=== PATIENT | female | born 1990 | race Caucasian/White ===

== ENCOUNTER → 2017-05-27 | Outpatient (CLI) | payer OTHER ==
[~2017-05-27] MED LIST: ACET50TA PO; E-Z-GAS II EFFERVESCENT PACKET (SODIUM BICARB./CITRIC ACID/SIMETHICONE) As Ordered ONE; E-Z-HD 98% w/w 340GM SUSP BTL As Ordered ONE; E-Z-PAQUE 96% w/w SUSP 176GM BTL As Ordered ONE; IBUP60TA PO; PRENTAB26 PO; VALT500T PO
--- NOTE | 2017-05-27 09:17 | REP ---
Abdominal right upper quadrant ultrasound: There is a negative Neil's sign. There are multiple gallbladder calculi. There is no gallbladder wall thickening or pericholecystic fluid. There is no intrahepatic or extrahepatic biliary duct dilatation, the common duct measures 5.4 mm in diameter. The liver is enlarged measuring 20.3 cm craniocaudad. The hepatic parenchyma is homogeneous. The visualized portion of the pancreatic head is unremarkable. The body and tail are obscured by bowel gas. There is no right renal calculus, hydronephrosis, mass or cyst. The right kidney is normal size measuring 10.3 cm craniocaudad length. Impression: Cholelithiasis without evidence of acute cholecystitis or biliary duct dilatation. Signed by Dain Vidal MD 05/27/2017 09:07 A
--- NOTE | 2017-05-27 17:28 | REP ---
UPPER GI AIR CONTRAST AND SMALL BOWEL FOLLOW-THROUGH: The procedure was performed under the direct supervision of Dr. Burns. The images were reviewed with Dr. Burns. The customer success associate film shows no organomegaly or pathological masses. The intestinal gas pattern is nonspecific. Liquid barium and gas producing granules were given in the erect position as well as liquid barium in the prone oblique position in order to perform a double contrast upper GI examination. Additionally liquid barium was given at the end of the examination in order to perform a small bowel follow-through. The oral and pharyngeal stages of deglutition are unremarkable. Esophageal transport is prompt and efficient and there is no esophagitis, stricture, mucosal ring, or hiatal hernia. There is gastroesophageal reflux demonstrated to below the level of the ant. The stomach francis are normally outlined. The rugal fold is smooth and regular. There is no gastritis, neoplasm or ulcer disease. The duodenal francis are normally outlined. The mucosal folds are smooth and regular. There is no duodenitis, pancreatitis, peptic ulcer disease, or neoplasm. The visualized portion of the proximal small bowel appears normal in course and caliber. The barium column was followed through the small bowel to the level of the terminal ileum. Small bowel transit time was approximately 1 hour. During fluoroscopy gentle palpation shows all loops are freely movable and pliable. There are no fixed or angulated loops. The small bowel mucosal pattern is normal in course and caliber. There is no transition to suggest a partial small bowel obstruction. Spot filming of terminal ileum shows it to be unremarkable. IMPRESSION: There is gastroesophageal reflux demonstrated to below the level of the ant, otherwise unremarkable double contrast upper GI and small bowel follow-through examination. 3 minutes and 15 seconds of fluoroscopy time was utilized for this procedure. Reviewed by NOEMÍ Campuzano 05/30/2017 04:24 PEdited and Signed by Boni Burns MD 05/30/2017 05:33 P
== END ==
LOC: M RAD 08:00
PROVIDERS: ATTEND Nurse Practitioner Adult Health
DX: K58.2 Mixed irritable bowel syndrome (principal); R10.13 Epigastric pain

== ENCOUNTER 2017-12-19 16:12 | Observation (INO) | payer OTHER ==
[2017-12-19] MEDS: PANTOPRAZOLE 40MG INJ (PROTONIX) (C9113) IV ×2 (19:47)
[2017-12-19 19:54] LABS: KETONE, URINE AUTO RFX NEGATIVE (NEGATIVE); MUCUS, URINE RFX SMALL (NEGATIVE); NITRITE, URINE AUTO RFX NEGATIVE (NEGATIVE); RBC, URINE AUTO RFX TNTC /HPF (0-3); SQUAM EPITHELIAL CELL UR AURFX 1 /HPF (0-6)
[2017-12-19 19:55] LABS: LEUKOCYTE ESTERASE UR AUTO RFX 1+ (NEGATIVE); WBC, URINE AUTO RFX 56 /HPF (0-3)
[2017-12-19 19:56] LABS: BASO % 0.6 % (0.0-1.0); EOS # 0.1 10^3/uL (0.0-0.50); EOS % 1.8 % (0.0-3.0); HEMATOCRIT 39.1 % (36.0-47.0); HEMOGLOBIN 13.5 g/dl (12.0-16.0); IMMATURE GRANULOCYTE % 0.1 % (0-3.0); LYMPH # 1.8 10^3/uL (1.5-6.5); MEAN CORPUSCULAR HEMOGLOBIN 29.7 pg (27.0-33.0); MEAN CORPUSCULAR HGB CONC 34.5 g/dl (32.0-36.5); MEAN CORPUSCULAR VOLUME 85.9 fl (80.0-96.0); MONO # 0.4 10^3/uL (0.0-0.8); MONO % 5.4 % (0.0-5.0); NEUTROPHILS # 4.9 10^3/uL (1.8-7.7); NEUTROPHILS % 67.1 % (36.0-66.0); PLATELET COUNT, AUTOMATED 321 10^3/uL (150-450); RED BLOOD COUNT 4.55 10^6/uL (4.00-5.40); WHITE BLOOD COUNT 7.2 10^3/uL (4.0-10.0)
[2017-12-19 20:22] LABS: ALBUMIN 3.4 GM/DL (3.2-5.2); ALBUMIN/GLOBULIN RATIO 0.74 (1.00-1.93); ALKALINE PHOSPHATASE 258 U/L (45-117); ALT/SGPT 221 U/L (12-78); ANION GAP 9 MEQ/L (8-16); AST/SGOT 344 U/L (7-37); BILIRUBIN,DIRECT 0.7 MG/DL (0.0-0.2); BILIRUBIN,TOTAL 1.1 MG/DL (0.2-1.0); BLOOD UREA NITROGEN 10 MG/DL (7-18); CALCIUM LEVEL 9.4 MG/DL (8.5-10.1); CARBON DIOXIDE LEVEL 27 MEQ/L (21-32); CHLORIDE LEVEL 102 MEQ/L (98-107); CREATININE FOR GFR 0.68 MG/DL (0.55-1.30); GLOMERULAR FILTRATION RATE > 60.0 (>60); GLUCOSE, FASTING 125 MG/DL (70-100); LIPASE 154 U/L (73-393); POTASSIUM SERUM 4.1 MEQ/L (3.5-5.1); SODIUM LEVEL 138 MEQ/L (136-145)
[2017-12-19 21:23] LABS: CONTROL LINE UCG INT CTR LINE PRESENT; URINE PREG TEST NEGATIVE (NEGATIVE)
[2017-12-19] MEDS ORDERED: ISOVUE-370 76% 100ML VIAL (Q9967) As Ordered ×2 (21:31)
[2017-12-19 23:09] LABS: CONTROL LINE MONO INT CTR LINE PRESENT; MONO SCRN NEGATIVE (NEGATIVE)
[2017-12-20] MEDS: diphenhydrAMINE INJ 50MG/ML VIAL (J1200) IV ×2 (00:54)
[2017-12-20] MEDS ORDERED: ACETAMINOPHEN TAB 650MG DOSE (2X325MG) PO ×2 (02:00)
[2017-12-20] MEDS ORDERED: KETOROLAC 30 MG/ML VIAL (J1885) IV ×2 (02:00)
[2017-12-20] MEDS ORDERED: NORCO, ANEXSIA 5/325MG TABLET (HYDROcodone/ACETAMINOPHEN) PO ×2 (02:00)
[2017-12-20] MEDS ORDERED: ONDANSETRON 4MG/2ML VIAL (J2405) IV ×2 (02:00)
[2017-12-20] MEDS ORDERED: MORPHINE 4 MG/ML 1ML VIAL (J2270) IV ×2 (02:00)
[2017-12-20] MEDS ORDERED: METOCLOPRAMIDE INJ 10MG/2ML VIAL (J2765) IV ×2 (02:00)
[2017-12-20] MEDS: LR 1,000 ML IV ×2 (02:24)
[2017-12-20 08:00] LABS: ALBUMIN 3.1 GM/DL (3.2-5.2); ALBUMIN/GLOBULIN RATIO 0.84 (1.00-1.93); ALKALINE PHOSPHATASE 246 U/L (45-117); ALT/SGPT 217 U/L (12-78); AST/SGOT 183 U/L (7-37); BILIRUBIN,DIRECT 0.2 MG/DL (0.0-0.2); BILIRUBIN,TOTAL 0.4 MG/DL (0.2-1.0); TOTAL PROTEIN 6.8 GM/DL (6.4-8.2)
[2017-12-21 10:19] LABS: HEPATITIS B SURFACE ANTIGEN NEGATIVE (NEGATIVE)
[2017-12-21 10:47] LABS: HEPATITIS B CORE ANTIBODY IGM NEGATIVE (NEGATIVE)
[2017-12-21 10:49] LABS: HEPATITIS A ANTIBODY IGM NEGATIVE (NEGATIVE)
== END 2017-12-20 19:15 | disposition home or self-care (01) ==
LOC: M ED INP 12-20 01:51 → M ED 16:12 → M ED INP 16:13 → M PED 12-20 02:51
DX: K80.20 Calculus of gallbladder without cholecystitis without obstruction (principal); R79.89 Other specified abnormal findings of blood chemistry; N83.202 Unspecified ovarian cyst, left side; E66.9 Obesity, unspecified; Z79.899 Other long term (current) drug therapy; Z79.3 Long term (current) use of hormonal contraceptives; Z88.2 Allergy status to sulfonamides
CPT/HCPCS: C9113

== ENCOUNTER → 2018-01-04 | Outpatient (CLI) | payer OTHER ==
[2018-01-04 13:27] LABS: ALBUMIN 3.1 GM/DL (3.2-5.2); ALBUMIN/GLOBULIN RATIO 0.78 (1.00-1.93); ALKALINE PHOSPHATASE 120 U/L (45-117); ALT/SGPT 18 U/L (12-78); AST/SGOT 14 U/L (7-37); BILIRUBIN,DIRECT < 0.1 MG/DL (0.0-0.2); BILIRUBIN,TOTAL 0.3 MG/DL (0.2-1.0); TOTAL PROTEIN 7.1 GM/DL (6.4-8.2)
== END ==
LOC: M WUC 09:30
DX: K80.20 Calculus of gallbladder without cholecystitis without obstruction (principal)
CPT/HCPCS: 80076

== ENCOUNTER 2018-01-10 08:19 | Day surgery (SDC) | payer OTHER ==
[2018-01-10] MEDS ORDERED: LIDOCAINE 1% SDV 5 ML VIAL SC (08:30)
[2018-01-10 09:26] LABS: URINE PREG TEST NEGATIVE (NEGATIVE)
[2018-01-10 09:27] LABS: CONTROL LINE UCG INT CTR LINE PRESENT
[2018-01-10] MEDS: LR 1,000 ML IV (09:29)
[2018-01-10] MEDS ORDERED: fentaNYL 100 MCG/2 ML INJECTION (J3010) As Ordered ×2 (09:38→16:00)
[2018-01-10] MEDS ORDERED: MIDAZOLAM INJ 2 MG/2 ML VIAL (J2250) As Ordered (09:39)
[2018-01-10] MEDS ORDERED: ROCURONIUM BROMIDE 50 MG/5 ML VIAL As Ordered ×3 (09:41→16:00)
[2018-01-10] MEDS ORDERED: LIDOCAINE 2% INJ 100 MG/5 ML SDV (FOR ANES.) As Ordered (09:41)
[2018-01-10] MEDS ORDERED: PROPOFOL 200 MG/20 ML VIAL As Ordered (09:41)
[2018-01-10] MEDS ORDERED: ESMOLOL INJ 100MG/10ML VIAL As Ordered (16:00)
[2018-01-10] MEDS: BUPIVACAINE HCL 0.25% 30 ML VIAL As Ordered (16:00)
[2018-01-10] MEDS ORDERED: NEOSTIGMINE 10 MG/10 ML VIAL (J2710) As Ordered (16:32)
[2018-01-10] MEDS ORDERED: GLYCOPYRROLATE INJ 0.2 MG/ML 2 ML VIAL As Ordered (16:32)
[2018-01-10] MEDS: CONRAY-60 60% 50ML VIAL (Q9961) As Ordered (16:35)
[2018-01-10] MEDS ORDERED: KETOROLAC 60 MG/2 ML VIAL (J1885) As Ordered (16:37)
[2018-01-10] MEDS ORDERED: ONDANSETRON 4MG/2ML VIAL (J2405) As Ordered (16:37)
[2018-01-10] MEDS ORDERED: MORPHINE 10 MG/ML 1ML VIAL (J2270) IV (17:15)
[2018-01-10] MEDS ORDERED: LR 1,000 ML IV (17:15)
[2018-01-10] MEDS ORDERED: fentaNYL 100 MCG/2 ML INJECTION (J3010) IV (17:15)
[2018-01-10] MEDS ORDERED: ONDANSETRON 4MG/2ML VIAL (J2405) IV (17:15)
[2018-01-10] MEDS: PERCOCET 5MG/325MG TAB PO ×2 (17:22→18:50)
[2018-01-10] MEDS ORDERED: IBUPROFEN 600 MG TAB PO (17:30)
[2018-01-10] MEDS ORDERED: NORCO, ANEXSIA 5/325MG TABLET (HYDROcodone/ACETAMINOPHEN) PO (17:30)
[2018-01-10] MEDS ORDERED: ACETAMINOPHEN TAB 650MG DOSE (2X325MG) PO (17:30)
== END 2018-01-10 19:30 | disposition home or self-care (01) ==
LOC: M SDC 08:19
DX: K80.12 Calculus of gallbladder with acute and chronic cholecystitis without obstruction (principal); K58.9 Irritable bowel syndrome, unspecified; Z88.2 Allergy status to sulfonamides; Z79.3 Long term (current) use of hormonal contraceptives
CPT/HCPCS: 47563

== ENCOUNTER → 2018-03-23 | Outpatient (REF) | payer OTHER | LOC: M SFHCWAGY 16:14 | DX: Z12.4 Encounter for screening for malignant neoplasm of cervix (principal) ==

== ENCOUNTER → 2018-04-16 | Outpatient (REF) | payer OTHER | LOC: M SFHCLERA 15:42 | DX: J02.9 Acute pharyngitis, unspecified (principal) ==

== ENCOUNTER → 2018-08-04 | Outpatient (REF) | payer OTHER ==
[2018-08-04 20:08] LABS: CHLAMYDIA DNA AMPLIFICATION NEGATIVE (NEGATIVE); GC DNA AMPLIFICATION NEGATIVE (NEGATIVE)
== END ==
LOC: M LAB REF 17:40
DX: Z34.81 Encounter for supervision of other normal pregnancy, first trimester (principal)

== ENCOUNTER → 2018-09-19 | Outpatient (CLI) | payer OTHER ==
[2018-09-19 19:35] LABS: HEMATOCRIT 33.1 % (36.0-47.0); HEMOGLOBIN 11.1 g/dl (12.0-15.5); MEAN CORPUSCULAR HEMOGLOBIN 30.2 pg (27.0-33.0); MEAN CORPUSCULAR HGB CONC 33.5 g/dl (32.0-36.5); MEAN CORPUSCULAR VOLUME 90.2 fl (80.0-96.0); PLATELET COUNT, AUTOMATED 249 10^3/uL (150-450); RED BLOOD COUNT 3.67 10^6/uL (4.00-5.40); RED CELL DISTRIBUTION WIDTH 14.7 % (11.5-14.5); WHITE BLOOD COUNT 8.9 10^3/uL (4.0-10.0)
[2018-09-19 19:50] LABS: GLUCOSE CHALLENGE TEST 1 HOUR 117 MG/DL (LESS THAN 140)
== END ==
LOC: M WUC 15:26
DX: Z36.89 Encounter for other specified antenatal screening (principal)
CPT/HCPCS: 82950

== ENCOUNTER 2018-11-14 15:33 | Outpatient (CLI) | payer OTHER ==
[~2018-11-14] VITALS: Ht 157.5 cm; Wt 131.0 kg
[~2018-11-14 15:33] MED LIST changes: -ACET50TA PO; -E-Z-GAS II EFFERVESCENT PACKET (SODIUM BICARB./CITRIC ACID/SIMETHICONE) As Ordered ONE; -E-Z-HD 98% w/w 340GM SUSP BTL As Ordered ONE; -E-Z-PAQUE 96% w/w SUSP 176GM BTL As Ordered ONE; +GAS-125C PO; +MAPA500T2 PO; +ROLA1CHW PO; +TUMS500C PO; +XULA1DIS PO; +XULA1DIS TD
[2018-11-14 15:54] VITALS: BP 115/60
[2018-11-14] MEDS ORDERED: DICY20TA11 PO (16:30)
[2018-11-14] MEDS ORDERED: MORPHINE 4 MG/ML 1ML VIAL/SYRINGE (J2270) IV ONE (16:45)
[2018-11-14 16:51] VITALS: BP 114/60
[2018-11-14] MEDS ORDERED: ACETAMINOPHEN 500 MG TAB PO ONE (17:15)
== END 2018-11-14 18:00 | disposition home or self-care (01) ==
LOC: M LDO 15:33
PROVIDERS: ATTEND Specialist
DX: O99.89 Other specified diseases and conditions complicating pregnancy, childbirth and the puerperium (principal); K58.1 Irritable bowel syndrome with constipation; Z3A.31 31 weeks gestation of pregnancy
CPT/HCPCS: 59025; G0378; G0463

== ENCOUNTER → 2018-12-13 | Outpatient (REF) | payer OTHER ==
[~2018-12-13] MED LIST changes: +DICY20TA11 PO
== END ==
LOC: M LAB REF 17:09
PROVIDERS: ATTEND Advanced Practice Midwife
DX: Z34.83 Encounter for supervision of other normal pregnancy, third trimester (principal)

== ENCOUNTER 2019-01-06 07:05 | Inpatient (IN) | payer OTHER ==
[~2019-01-06] VITALS: Ht 157.5 cm; Wt 135.1 kg
[2019-01-06] VITALS (31 sets, daily range): BP systolic 106–162; BP diastolic 59–97
[2019-01-06] MEDS ORDERED: PENICILLIN G POTASSIUM IV 5 MU in D5W MINI-BAG PLUS 100 ML IV STA ×2 (08:11→19:45)
[2019-01-06 08:29] LABS: HEMATOCRIT 34.8 % (36.0-47.0); HEMOGLOBIN 11.6 g/dl (12.0-15.5); MEAN CORPUSCULAR HEMOGLOBIN 29.1 pg (27.0-33.0); MEAN CORPUSCULAR HGB CONC 33.3 g/dl (32.0-36.5); MEAN CORPUSCULAR VOLUME 87.4 fl (80.0-96.0); PLATELET COUNT, AUTOMATED 250 10^3/uL (150-450); RED BLOOD COUNT 3.98 10^6/uL (4.00-5.40); WHITE BLOOD COUNT 8.4 10^3/uL (4.0-10.0)
[2019-01-06] MEDS ORDERED: LR 500 ML IV ONE (08:30)
[2019-01-06] MEDS: miSOPROStol 50 MCG 1/2 TAB (S0191) PO SCH ×2 (08:34→15:31)
[2019-01-06] MEDS ORDERED: PENICILLIN G POTASSIUM IV 2.5 MU in APPROPRIATE DILUENT 1 EA IV SCH (12:15)
[2019-01-06] MEDS ORDERED: OXYTOCIN DRIP 30 UNITS in APPROPRIATE DILUENT 1 EA IV SCH (20:15)
[2019-01-06] MEDS: LR 1,000 ML IV SCH ×2 (20:29→22:02)
[2019-01-06] MEDS ORDERED: FENTANYL 2MCG/ML ROPIVACAINE 0.2% IN 0.9% NACL 100ML IVBAG As Ordered ONE (22:33)
[2019-01-06] MEDS ORDERED: diphenhydrAMINE INJ 50MG/ML VIAL (J1200) IV PRN (23:45)
[2019-01-06] MEDS ORDERED: REFRIGERATOR IV KEYS XX PRN (23:45)
[2019-01-06] MEDS ORDERED: LACTATED RINGER'S 1000 ML IV PRN (23:45)
[2019-01-06] MEDS ORDERED: NALOXONE INJ 0.4 MG/1 ML VIAL (J2310) IV PRN (23:45)
[2019-01-06] MEDS ORDERED: EPIDURAL/PCA KEYS XX PRN (23:45)
[2019-01-06] MEDS ORDERED: EPIDURAL COMMENT XX SCH (23:45)
[2019-01-06] MEDS ORDERED: ePHEDrine SULFATE 25 MG/5 ML(5MG/ML) SYRINGE IV PRN (23:45)
[2019-01-06] MEDS ORDERED: ONDANSETRON 4MG/2ML VIAL (J2405) IV PRN (23:45)
[2019-01-06] MEDS: FENTANYL/ROPIVACAINE/NACL BAG 100 ML EPIDURAL SCH (23:49)
[2019-01-06] MEDS: PENICILLIN G POTASSIUM IV 2.5 MU in APPROPRIATE DILUENT 1 EA IV SCH (23:54)
[2019-01-07] VITALS (34 sets, daily range): BP systolic 106–159; BP diastolic 56–121
--- NOTE | 2019-01-07 01:13 | NUR ---
L&D Note: S: Comfortable after epidural O: vss, AF cat 1 tracing cx: 375/3, AROm clear. FSE and IUPC placed A/P: 28yo IOL reassuring status -will re examine in 4hrs Nanci Reis MD
--- NOTE | 2019-01-07 01:52 | HPE ---
DATE OF ADMISSION: 01/06/2019 REASON FOR ADMISSION: Induction of labor. HISTORY OF PRESENT ILLNESS: Ms. Lundy is a 28-year-old 2, para 1 who presents at 39 weeks and 4 days estimated gestational age by her last menstrual period confirmed by first trimester ultrasound here for induction of labor. Her course has been unremarkable. She initiated care in her first trimester and has been appropriate throughout. PAST MEDICAL HISTORY: None. PAST SURGICAL HISTORY: Cholecystectomy. PAST OBSTETRICAL HISTORY: She is 2, para 1. She has had 1 term, uncomplicated vaginal delivery. She is proven to 8 pounds 5 ounces. MEDICATIONS: Her medications include vitamins. ALLERGIES: She has allergies to SULFA. SOCIAL HISTORY: Denies any alcohol, tobacco or drug use in her . PHYSICAL EXAMINATION: VITAL SIGNS: Stable. She has a category one rate tracing. GENERAL APPEARANCE: Well appearing, no acute distress. LUNGS: Clear to auscultation bilaterally. CARDIOVASCULAR: Heart regular rate and rhythm. ABDOMEN: Abdomen is gravid, nontender. Estimated weight (EFW) 3600 grams. CERVICAL EXAMINATION: She is 1 cm dilated, 75% effaced, -3 station. LABORATORIES: Her blood type is O+. Antibody screen is negative. Rubella is immune. RPR is nonreactive. Hepatitis surface antigen is negative. Human immunodeficiency virus (HIV) is negative. Hepatitis C is nonreactive. Gonorrhea and chlamydia screens negative. She had a normal 1 hour Glucola. She is group B Streptococcus (GBS) positive. ASSESSMENT: 1. Ms. Lundy is a 28-year-old 2, para 1 at 39 weeks and 4 days estimated gestational age here for induction of labor. 2. Reassuring status. PLAN: 1. The plan is to admit to labor delivery. Complete blood count (CBC), RPR, type and screen. 2. I discussed induction of labor as well as medication procedures performed with labor and delivery. She has also been verbally consented for emergency surgery, blood products and anesthesia and desires to proceed with admission. 3. Will initiate oral misoprostol for induction of labor.
[2019-01-07] MEDS: PENICILLIN G POTASSIUM IV 2.5 MU in APPROPRIATE DILUENT 1 EA IV SCH ×2 (03:59→07:57)
[2019-01-07] MEDS: LR 1,000 ML IV SCH ×2 (04:25→08:56)
[2019-01-07] MEDS: FENTANYL/ROPIVACAINE/NACL BAG 100 ML EPIDURAL SCH (08:45)
[2019-01-07] MEDS: PRENATAL VITAMINS CHEWABLE TABLET PO SCH (09:00)
[2019-01-07] MEDS ORDERED: OXYTOCIN DRIP 30 UNITS in APPROPRIATE DILUENT 1 EA IV SCH (11:44)
[2019-01-07] MEDS ORDERED: MEASLES,MUMPS,RUBELLA VACCINE INJ (MMR-II) (90707) SC SCH (11:45)
[2019-01-07] MEDS ORDERED: ANUSOL HC CREAM 30GM TOP PRN (11:45)
[2019-01-07] MEDS ORDERED: DIBUCAINE 1% OINTMENT 30GM TOP PRN (11:45)
[2019-01-07] MEDS ORDERED: RHOGAM 300 MCG (1500 IU) INJ (J2790) IM SCH (11:45)
[2019-01-07] MEDS ORDERED: MOM 30ML SUSPENSION UDC PO PRN (11:45)
[2019-01-07] MEDS ORDERED: METHYLERGONOVINE MALEATE 0.2 MG TAB PO PRN (11:45)
[2019-01-07] MEDS ORDERED: DOCUSATE SODIUM 100 MG CAP PO PRN (11:45)
[2019-01-07] MEDS: ACETAMINOPHEN 500 MG TAB PO PRN ×2 (12:21→21:23)
[2019-01-07] MEDS: IBUPROFEN 800 MG TAB PO PRN (14:56)
[2019-01-08 06:00] VITALS: BP 126/83
--- NOTE | 2019-01-08 06:47 | DN ---
DATE OF DELIVERY: 01/07/2019 TIME OF : 1058 hours. GENDER: Female. SCORES: 9 and 9. WEIGHT: 3940 grams or 8 pounds 11 ounces. LACERATIONS: None. ESTIMATED BLOOD LOSS: 300 mL. COUNTS: Five laparotomy sponges were accounted for prior to and after delivery. DELIVERY NOTE: On January 07, 2019 at 1058 hours, Miss Lundy, a 28-year-old 2 now para 2, had a spontaneous vaginal delivery of a liveborn female infant, scores of 9 and 9, weight was 3940 grams or 8 pounds 11 ounces. Head was delivered OA over intact perineum, followed by delivery of shoulders and corpus. Infant was handed to mom with a good cry. Cord was clamped times two, was cut by the father of baby under my direction. Cord blood was then obtained. Placenta was drained and delivered grossly intact. A premixed bag of 500 mL of normal saline with 30 units of Pitocin was then bolused along with uterine massage. The uterus was firm. On inspection of cervix, vagina, and perineum was grossly intact, hemostatic. Mom and baby were recovering in stable condition.
--- NOTE | 2019-01-08 07:10 | NUR ---
PPD#1 S: Doing well w/o complaints. +ambulation, +voids, pain well controlled. O: vss, AF gen: well appearing abd: soft,nttp, ff@u-1 ext: neg calf tenderness A/P: PPD#1 s/p - recovering in stable condition -cont routine care -d/c plans for tomorrow Nanci Reis MD
[2019-01-08] MEDS: PRENATAL VITAMINS CHEWABLE TABLET PO SCH (08:03)
[2019-01-08] MEDS: IBUPROFEN 800 MG TAB PO PRN ×2 (14:07→23:22)
[2019-01-08 18:00] VITALS: BP 113/58
[2019-01-09 06:00] VITALS: BP 120/68
[2019-01-09] MEDS: PRENATAL VITAMINS CHEWABLE TABLET PO SCH (09:17)
[2019-01-09] MEDS: IBUPROFEN 800 MG TAB PO PRN (09:18)
[2019-01-09] MEDS: ACETAMINOPHEN 500 MG TAB PO PRN (09:19)
[2019-01-09] MEDS ORDERED: PRENTAB9 PO (09:42)
[2019-01-09] MEDS ORDERED: IBUP-1114 PO (09:44)
[2019-01-09] MEDS ORDERED: MAPA500T2 PO (09:44)
== END 2019-01-09 11:20 | disposition home or self-care (01) | DRG 560 ==
LOC: M LDI 07:05 → M OBS 01-07 13:32
PROVIDERS: ADMIT Obstetrics & Gynecology; ATTEND Obstetrics & Gynecology
PROC: 3E0DXGC Introduction of Other Therapeutic Substance into Mouth and Pharynx, External Approach (ICD-10-PCS; 2019-01-06)
PROC: 10E0XZZ Delivery of Products of Conception, External Approach (ICD-10-PCS; principal; 2019-01-07)
DX: O13.4 Gestational [pregnancy-induced] hypertension without significant proteinuria, complicating childbirth (principal); Z37.0 Single live birth; Z3A.39 39 weeks gestation of pregnancy

== ENCOUNTER 2019-03-30 09:23 | Day surgery (SDC) | payer MEDICAID ==
[~2019-03-30] VITALS: Ht 157.5 cm; Wt 122.5 kg
[~2019-03-30 09:23] MED LIST changes: +IBUP-1114 PO; +IBUP600T42 PO; -IBUP60TA PO; +PRENTAB9 PO
[2019-03-30] MEDS ORDERED: LR 1,000 ML IV SCH ×2 (09:30→13:30)
[2019-03-30] MEDS ORDERED: LIDOCAINE 1% MDV 20ML VIAL SQ PRN (09:30)
[2019-03-30 10:04] LABS: HEMATOCRIT 37.6 % (36.0-47.0); HEMOGLOBIN 12.5 g/dl (12.0-15.5); MEAN CORPUSCULAR HEMOGLOBIN 29.3 pg (27.0-33.0); MEAN CORPUSCULAR HGB CONC 33.2 g/dl (32.0-36.5); MEAN CORPUSCULAR VOLUME 88.3 fl (80.0-96.0); PLATELET COUNT, AUTOMATED 284 10^3/uL (150-450); RED BLOOD COUNT 4.26 10^6/uL (4.00-5.40); WHITE BLOOD COUNT 5.1 10^3/uL (4.0-10.0)
[2019-03-30 10:10] LABS: HCG, SERUM QUALITATIVE NEGATIVE (NEGATIVE)
[2019-03-30] MEDS ORDERED: PROPOFOL 200 MG/20 ML VIAL As Ordered ONE (11:07)
[2019-03-30] MEDS ORDERED: MIDAZOLAM INJ 2 MG/2 ML VIAL (J2250) As Ordered ONE (11:07)
[2019-03-30] MEDS ORDERED: fentaNYL 100 MCG/2 ML INJECTION (J3010) As Ordered ONE ×2 (11:07→12:22)
[2019-03-30] MEDS ORDERED: SUGAMMADEX SODIUM 500 MG/5 ML VIAL (BRIDION) As Ordered ONE (11:07)
[2019-03-30] MEDS ORDERED: LIDOCAINE 2% INJ 100 MG/5 ML SDV (FOR ANES.) As Ordered ONE (11:07)
[2019-03-30] MEDS ORDERED: ROCURONIUM BROMIDE 50 MG/5 ML VIAL As Ordered ONE (11:07)
[2019-03-30] MEDS ORDERED: dexameTHASONE 4 MG/ML 1ML VIAL (J1100) As Ordered ONE (11:07)
[2019-03-30] MEDS ORDERED: ONDANSETRON 4MG/2ML VIAL (J2405) As Ordered ONE (11:07)
[2019-03-30] MEDS ORDERED: METOCLOPRAMIDE INJ 10MG/2ML VIAL (J2765) As Ordered ONE (11:07)
[2019-03-30] MEDS ORDERED: KETOROLAC 60 MG/2 ML VIAL (J1885) As Ordered ONE (11:07)
[2019-03-30] MEDS ORDERED: BUPIVACAINE HCL 0.25% 30 ML VIAL As Ordered ONE (11:38)
[2019-03-30] MEDS ORDERED: ACETAMINOPHEN 1000MG 100ML IV BTL (OFIRMEV) (J0131 PER 10MG) As Ordered ONE (12:22)
[2019-03-30] MEDS ORDERED: OXYC1TAB23 PO (12:32)
[2019-03-30] MEDS ORDERED: METOCLOPRAMIDE INJ 10MG/2ML VIAL (J2765) IV PRN (13:30)
[2019-03-30] MEDS ORDERED: KETOROLAC 30 MG/ML VIAL (J1885) IV PRN (13:30)
[2019-03-30] MEDS ORDERED: MEPERIDINE INJ 25 MG/ML VIAL (J2175) IV PRN (13:30)
[2019-03-30] MEDS ORDERED: fentaNYL 100 MCG/2 ML INJECTION (J3010) IV PRN (13:30)
[2019-03-30] MEDS ORDERED: PERCOCET 5MG/325MG TAB PO PRN ×2 (13:30→14:00)
[2019-03-30] MEDS ORDERED: ONDANSETRON 4MG/2ML VIAL (J2405) IV PRN (13:30)
[2019-03-30 14:45] VITALS: BP 110/56
[2019-03-30] MEDS ORDERED: IBUP80TA PO (14:47)
--- NOTE | 2019-03-30 16:50 | RO ---
DATE OF PROCEDURE: 03/30/2019 PREOPERATIVE DIAGNOSIS: Satisfied parity with undesired fertility. POSTOPERATIVE DIAGNOSIS: Satisfied parity with undesired fertility. PROCEDURE PERFORMED: Laparoscopic bilateral salpingectomy. SURGEON: Nanci Reis MD AUTOMOTIVE QUALITY MANAGER: None. ANESTHESIA: General endotracheal anesthesia. ESTIMATED BLOOD LOSS: 5 mL. URINE OUTPUT: 500 mL. INTRAVENOUS FLUIDS: 1100 mL of lactated Ringer's solution. SPECIMENS: Bilateral fallopian tubes. OPERATIVE FINDINGS: Patient with normal appearing uterus, bilateral adnexa. Appendix was visualized, appeared to be normal. PREOPERATIVE ANTIBIOTICS: None. INFECTION CLASSIFICATION: #1 DESCRIPTION OF OPERATION: After informed consent was obtained and written consent was reviewed, the patient was brought to the operating room where she was placed under general endotracheal anesthesia. She was then placed in lithotomy position and was prepped and draped in a normal sterile fashion. A time-out in the operating room was performed identifying the patient, procedure to be performed, as well as drug allergies. A bivalve speculum was then placed revealing the cervix. The anterior lip of the cervix was grasped with a single-tooth tenaculum. A Hulka tenaculum was advanced through the cervical os for means to manipulate the uterus. Single-tooth tenaculum, speculum was then removed. A High catheter was then placed and set to gravity. Gloves were changed. Attention was then turned to the patient's abdomen where 0.25% Marcaine was infused in umbilical region. This area was incised and a 5 mm trocar and sleeve was advanced through this incision. The laparoscope was then replaced revealing intra-abdominal placement. A pneumoperitoneum was then obtained with CO2 gas. The abdomen was then surveyed with the above noted findings. Two additional port sites were placed. The first was 2 cm above the pubis symphysis in the midline. This area was infused with 0.25% Marcaine. Incision was made in this area and an 8 mm trocar and sleeve was advanced through this incision under direct visualization. A third trocar was placed in the left side of the patient's abdomen, parallel from the umbilicus. This area was infused with 0.25% Marcaine. The 5 mm trocar and sleeve was advanced through the incision under direct visualization. Next, using Harmonic Salinas scalpel device, the right mesosalpinx was dissected below the fallopian tube and the right fallopian tube was transected at the level of the uterus. The specimen was then brought out through the port site, and in a similar fashion, the left mesosalpinx was dissected below the fallopian tube, and it was transected at the level of the uterus. The specimen was then removed. Surgical sites were inspected and noted be hemostatic. The pneumoperitoneum was then released. Instruments were then removed. Trocars were removed. Incisions were then closed with #4-0 Monocryl and dressed with Dermabond. The Hulka tenaculum was then removed. Tenaculum sites were noted to be hemostatic. The High catheter was then removed. The patient was then taken out of lithotomy position, was awakened from general anesthesia and taken to recovery in stable condition. Counts were correct.
[2019-03-30] MEDS ORDERED: KETOROLAC 30 MG/ML VIAL (J1885) IV SCH (18:00)
== END 2019-03-30 14:53 | disposition home or self-care (01) ==
LOC: M SDC 09:23
PROVIDERS: ATTEND Obstetrics & Gynecology
DX: Z30.2 Encounter for sterilization (principal); K58.8 Other irritable bowel syndrome; Z88.2 Allergy status to sulfonamides
CPT/HCPCS: 36415; 58661; 84703; 85027; 86850; 86900; 86901; 88302; J0131; J1100; J1885; J2250; J2405; J2765; J3010

== ENCOUNTER 2019-05-30 11:15 | Emergency (ER) | payer OTHER ==
[~2019-05-30] VITALS: Ht 157.5 cm; Wt 122.7 kg
[~2019-05-30 11:15] MED LIST changes: +IBUP80TA PO; +OXYC1TAB23 PO
--- NOTE | 2019-05-30 12:00 | REP ---
Left ankle four views : There is no fracture or dislocation. Mineralization and joint spaces are normal. There are no calcifications or foreign bodies. Impression: Negative left ankle . Electronically Signed by Dain Vidal MD 05/30/2019 11:52 A
--- NOTE | 2019-05-30 12:03 | REP ---
Left foot four views: There is a fracture at the base of the fifth digit metatarsal. There is no dislocation. Mineralization and joint spaces otherwise are unremarkable. There are no calcifications or foreign bodies. Impression: Fracture at the base of the fifth digit metatarsal. Electronically Signed by Dain Vidal MD 05/30/2019 11:53 A
[2019-05-30] MEDS ORDERED: IBUPROFEN 800 MG TAB PO ONE (13:00)
[2019-05-30] MEDS ORDERED: ADACEL/BOOSTRIX VACCINE (DIPHTH/PERTUSS/ACELL/TETANUS)0.5ML SYR (90715) IM ONE (13:00)
[2019-05-30 14:19] VITALS: BP 118/73
== END 2019-05-30 14:21 | disposition home or self-care (01) ==
LOC: M ED 11:15
DX: S92.355A Nondisplaced fracture of fifth metatarsal bone, left foot, initial encounter for closed fracture (principal); X50.1XXA Overexertion from prolonged static or awkward postures, initial encounter; Y92.89 Other specified places as the place of occurrence of the external cause; Y93.89 Activity, other specified; Y99.0 Civilian activity done for income or pay; Z88.2 Allergy status to sulfonamides

== ENCOUNTER → 2019-08-17 | Outpatient (REF) | payer OTHER ==
[2019-08-21 14:40] LABS: HPV HYBRID CAPTURE II Negative (Negative)
== END ==
LOC: M SFHCWAGY 09:28
PROVIDERS: ATTEND Nurse Practitioner Family
DX: Z12.4 Encounter for screening for malignant neoplasm of cervix (principal)

== ENCOUNTER → 2019-11-06 | Outpatient (REF) | payer OTHER | LOC: M LAB REF 12:54 | PROVIDERS: ATTEND Physician Assistant | DX: R11.2 Nausea with vomiting, unspecified (principal) ==

== ENCOUNTER → 2020-06-19 | Outpatient (REF) | payer BC ==
[2020-07-24 07:38] LABS: BASO # 0.1 10^3/uL (0.0-0.2); BASO % 0.8 % (0.0-1.0); EOS # 0.3 10^3/uL (0.0-0.5); EOS % 4.3 % (0.0-3.0); HEMATOCRIT 40.2 % (36.0-47.0); HEMOGLOBIN 13.4 g/dl (12.0-15.5); LYMPH # 2.2 10^3/uL (1.5-5.0); LYMPH % 36.1 % (24.0-44.0); MEAN CORPUSCULAR HEMOGLOBIN 29.1 pg (27.0-33.0); MEAN CORPUSCULAR HGB CONC 33.3 g/dl (32.0-36.5); MEAN CORPUSCULAR VOLUME 87.2 fl (80.0-96.0); MONO # 0.4 10^3/uL (0.0-0.8); NEUTROPHILS # 3.3 10^3/uL (1.5-8.5); NEUTROPHILS % 52.5 % (36.0-66.0); PLATELET COUNT, AUTOMATED 287 10^3/uL (150-450); RED BLOOD COUNT 4.61 10^6/uL (4.00-5.40); WHITE BLOOD COUNT 6.2 10^3/uL (4.0-10.0)
[2020-08-06 09:52] LABS: ALBUMIN 3.7 GM/DL (3.2-5.2); ALT/SGPT 21 U/L (12-78); BILIRUBIN,DIRECT 0.1 MG/DL (0.0-0.2); BILIRUBIN,TOTAL 0.5 MG/DL (0.2-1.0); BLOOD UREA NITROGEN 8 MG/DL (7-18); CALCIUM LEVEL 8.8 MG/DL (8.5-10.1); CARBON DIOXIDE LEVEL 27 MEQ/L (21-32); CHLORIDE LEVEL 106 MEQ/L (98-107); CREATININE FOR GFR 0.69 MG/DL (0.55-1.30); GLOMERULAR FILTRATION RATE > 60.0 (>60); GLUCOSE, FASTING 103 MG/DL (70-100); LIPASE 89 U/L (73-393); POTASSIUM SERUM 4.1 MEQ/L (3.5-5.1); SODIUM LEVEL 139 MEQ/L (136-145); THYROXINE (T4) 10.2 UG/DL (4.5-12.0); TOTAL 25(OH) VITAMIN D 23.3 NG/ML (30.0-100.0); TOTAL PROTEIN 7.1 GM/DL (6.4-8.2)
== END ==
LOC: M WUC 14:51
PROVIDERS: ATTEND Physician Assistant
DX: K58.2 Mixed irritable bowel syndrome (principal)

== ENCOUNTER → 2020-11-17 | Outpatient (REF) | payer BC | LOC: M LAB REF 17:12 | PROVIDERS: ATTEND Physician Assistant | DX: N39.0 Urinary tract infection, site not specified (principal) ==

== ENCOUNTER → 2021-04-08 | Outpatient (CLI) | payer BC ==
[2021-04-10 00:07] LABS: ANTINUCLEAR ANTIBODIES DIRECT Negative (Negative); CYCLIC CITRULLINATED PEPTIDE 3 units (0-19)
== END ==
LOC: M WUC 08:34
PROVIDERS: ATTEND Family Medicine
DX: R07.9 Chest pain, unspecified (principal); R70.0 Elevated erythrocyte sedimentation rate

== ENCOUNTER → 2021-06-04 | Outpatient (CLI) | payer BC ==
[2021-06-04 14:58] LABS: BASO % 0.9 % (0.0-1.0); EOS # 0.1 10^3/uL (0.0-0.5); HEMATOCRIT 40.6 % (36.0-47.0); HEMOGLOBIN 13.4 g/dl (12.0-15.5); LYMPH # 0.9 10^3/uL (1.5-5.0); LYMPH % 20.1 % (24.0-44.0); MEAN CORPUSCULAR VOLUME 87.9 fl (80.0-96.0); MONO # 0.3 10^3/uL (0.0-0.8); MONO % 7.5 % (2.0-8.0); NEUTROPHILS # 3.1 10^3/uL (1.5-8.5); NEUTROPHILS % 68.8 % (36.0-66.0); PLATELET COUNT, AUTOMATED 244 10^3/uL (150-450); RED BLOOD COUNT 4.62 10^6/uL (4.00-5.40); WHITE BLOOD COUNT 4.5 10^3/uL (4.0-10.0)
[2021-06-04 15:18] LABS: ERYTHROCYTE SEDIMENTATION RATE 35 mm/hr (0-20)
[2021-06-04 15:25] LABS: C REACTIVE PROTEIN QUANTITATIV 2.63 MG/DL (0.00-0.30); PERCENT SATURATION 23.8 % (13.2-45.0)
[2021-06-04 15:36] LABS: FOLATE 9.5 NG/ML
== END ==
LOC: M LAB 13:54
PROVIDERS: ATTEND Internal Medicine Gastroenterology
DX: R19.4 Change in bowel habit (principal)

== ENCOUNTER → 2022-03-16 | Outpatient (REF) | payer BC ==
[~2022-03-16] MED LIST changes: -DICY20TA11 PO; +DICY20TA20 PO
== END ==
LOC: M LAB REF 17:34
PROVIDERS: ATTEND Family Medicine
DX: R30.0 Dysuria (principal)

== ENCOUNTER → 2022-04-22 | Outpatient (REF) | payer BC | LOC: M LAB REF 16:22 | PROVIDERS: ATTEND Physician Assistant | DX: R05.9 Cough, unspecified (principal) ==

== ENCOUNTER → 2022-04-27 | Outpatient (CLI) | payer BC ==
[2022-04-27 16:43] LABS: C REACTIVE PROTEIN QUANTITATIV 1.98 MG/DL (0.00-0.30); FOLLICLE STIMULATING HORMONE 2.7 mIU/mL; FREE T4 0.99 NG/DL (0.76-1.46); LUTEINIZING HORMONE 3.3 mIU/mL; RHEUMATOID FACTOR QUANT < 10.0 IU/ML (<15.0)
[2022-04-27 17:44] LABS: HEMOGLOBIN A1c 4.9 %
== END ==
LOC: M WUC 13:37
PROVIDERS: ATTEND Family Medicine
DX: R70.0 Elevated erythrocyte sedimentation rate (principal); L70.9 Acne, unspecified

== ENCOUNTER → 2022-11-09 | Outpatient (REF) | payer BC | LOC: M LAB REF 16:13 | PROVIDERS: ATTEND Physician Assistant Medical | DX: R50.9 Fever, unspecified (principal); R05.9 Cough, unspecified ==

== ENCOUNTER 2023-02-28 06:03 | Emergency (ER) | payer BC ==
[~2023-02-28] VITALS: Ht 157.5 cm; Wt 127.6 kg
[2023-02-28] MEDS ORDERED: CYMB1CAP4 PO (06:07)
[2023-02-28] MEDS ORDERED: ISOVUE-370 76% 100ML VIAL As Ordered ONE (07:39)
[2023-02-28 07:46] LABS: BASO % 0.6 % (0.0-1.0); EOS # 0.1 10^3/uL (0.0-0.5); HEMATOCRIT 42.3 % (36.0-47.0); HEMOGLOBIN 13.7 g/dl (12.0-15.5); LYMPH # 2.1 10^3/uL (1.5-5.0); LYMPH % 29.7 % (24.0-44.0); MEAN CORPUSCULAR HEMOGLOBIN 28.4 pg (27.0-33.0); MEAN CORPUSCULAR HGB CONC 32.4 g/dl (32.0-36.5); MEAN CORPUSCULAR VOLUME 87.6 fl (80.0-96.0); MONO # 0.4 10^3/uL (0.0-0.8); MONO % 5.9 % (2.0-8.0); NEUTROPHILS # 4.3 10^3/uL (1.5-8.5); NEUTROPHILS % 61.4 % (36.0-66.0); PLATELET COUNT, AUTOMATED 326 10^3/uL (150-450); RED BLOOD COUNT 4.83 10^6/uL (4.00-5.40)
[2023-02-28 07:52] LABS: ALBUMIN 3.8 G/DL (3.2-5.2); BILIRUBIN,DIRECT 0.2 MG/DL (<0.4); BILIRUBIN,TOTAL 0.7 MG/DL (0.3-1.2); TOTAL PROTEIN 7.2 G/DL (5.7-8.2)
[2023-02-28 09:29] VITALS: BP 134/83
== END 2023-02-28 09:32 | disposition home or self-care (01) ==
LOC: M ED 06:03
DX: A08.11 Acute gastroenteropathy due to Norwalk agent (principal); Z88.2 Allergy status to sulfonamides; Z79.899 Other long term (current) drug therapy
CPT/HCPCS: 36415; 74177; 80047; 80076; 83690; 84702; 85025; 87507; 99284; Q9967

== ENCOUNTER → 2023-04-21 | Outpatient (CLI) | payer BC ==
[~2023-04-21] MED LIST changes: +CYMB1CAP4 PO
[2023-04-21 16:31] LABS: RHEUMATOID FACTOR QUANT < 3.5 IU/ML (<14)
[2023-04-21 16:32] LABS: ALBUMIN 3.9 G/DL (3.2-5.2); ALKALINE PHOSPHATASE 129 U/L (46-116); ALT/SGPT 21 U/L (7.0-40); AST/SGOT 15 U/L (<34); BILIRUBIN,TOTAL 0.8 MG/DL (0.3-1.2); BLOOD UREA NITROGEN 12 MG/DL (9-23); CALCIUM LEVEL 9.8 MG/DL (8.5-10.1); CARBON DIOXIDE LEVEL 30 MMOL/L (20-31); CHLORIDE LEVEL 99 MMOL/L (98-107); FOLLICLE STIMULATING HORMONE 8.4 mIU/ML; GLOMERULAR FILTRATION RATE > 60.0 (>60); GLUCOSE, FASTING 102 MG/DL (60-100); LUTEINIZING HORMONE 23.1 mIU/ML; POTASSIUM SERUM 3.9 MMOL/L (3.5-5.1); SODIUM LEVEL 135 MMOL/L (136-145); THYROID STIMULATING HORMONE 1.886 uIU/ML (0.55-4.78); TOTAL PROTEIN 7.3 G/DL (5.7-8.2)
[2023-04-21 16:33] LABS: FREE T4 1.09 NG/DL (0.89-1.76)
[2023-04-21 16:34] LABS: VITAMIN B12 LEVEL 311 PG/ML (211-911)
[2023-04-21 16:47] LABS: URIC ACID 6.1 MG/DL (3.1-7.8)
[2023-04-21 18:48] LABS: HEMOGLOBIN A1c 4.9 % (4.0-6.0)
[2023-04-23 23:07] LABS: CYCLIC CITRULLINATED PEPTIDE 4 units (0-19); INSULIN LEVEL 8.9 uIU/mL (2.6-24.9); IgG P18 AB Absent (.); IgG P23 AB Absent (.); IgG P28 AB Absent (.); IgG P30 AB Absent (.); IgG P39 AB Absent (.); IgG P41 AB Present (.); IgG P45 AB Absent (.); IgG P66 AB Absent (.); IgG P93 AB Absent (.); IgM P23 AB Absent (.); IgM P39 AB Absent (.); IgM P41 AB Absent (.); LYME IgG WB INTERPRETATION Negative (.); LYME IgM WB INTERPRETATION Negative (.); TISSUE TRANSGLUTAMINASE IgA <2 U/mL (0-3); TISSUE TRANSGLUTAMINASE IgG <2 U/mL (0-5); UNITSIGA FOR GLIADIN IGA 5 units (0-19); UNITSIGG FOR GLIADIN IGG 2 units (0-19)
== END ==
LOC: M WUC 10:43
PROVIDERS: ATTEND Family Medicine
DX: R60.0 Localized edema (principal); R10.30 Lower abdominal pain, unspecified; M25.561 Pain in right knee; R53.83 Other fatigue

== ENCOUNTER 2023-06-15 07:58 | Emergency (ER) | payer BC ==
[~2023-06-15] VITALS: Ht 157.5 cm; Wt 135.4 kg
[2023-06-15 07:59] VITALS: BP 121/76; TEMP 97.8; O2SAT 99
[2023-06-15 08:48] LABS: HEMATOCRIT 38.9 % (36.0-47.0); HEMOGLOBIN 12.7 g/dl (12.0-15.5); MEAN CORPUSCULAR HEMOGLOBIN 28.5 pg (27.0-33.0); MEAN CORPUSCULAR HGB CONC 32.6 g/dl (32.0-36.5); MEAN CORPUSCULAR VOLUME 87.2 fl (80.0-96.0); PLATELET COUNT, AUTOMATED 301 10^3/uL (150-450); RED BLOOD COUNT 4.46 10^6/uL (4.00-5.40); WHITE BLOOD COUNT 7.5 10^3/uL (4.0-10.0)
[2023-06-15 09:11] LABS: BLOOD UREA NITROGEN 9 MG/DL (9-23); CALCIUM LEVEL 8.7 MG/DL (8.5-10.1); CARBON DIOXIDE LEVEL 28 MMOL/L (20-31); CHLORIDE LEVEL 103 MMOL/L (98-107); CREATININE FOR GFR 0.62 MG/DL (0.55-1.30); GLOMERULAR FILTRATION RATE > 60.0 (>60); GLUCOSE, FASTING 121 MG/DL (60-100); POTASSIUM SERUM 4.1 MMOL/L (3.5-5.1); SODIUM LEVEL 139 MMOL/L (136-145)
[2023-06-15] MEDS ORDERED: FURO20TA2 PO (11:00)
== END 2023-06-15 11:30 | disposition home or self-care (01) ==
LOC: M ED 07:58
DX: R22.43 Localized swelling, mass and lump, lower limb, bilateral (principal); E28.2 Polycystic ovarian syndrome; Z88.2 Allergy status to sulfonamides; Z79.899 Other long term (current) drug therapy

== ENCOUNTER → 2023-07-14 | Outpatient (REF) | payer BC ==
[~2023-07-14] MED LIST changes: +FURO20TA2 PO
== END ==
LOC: M LAB REF 12:14
PROVIDERS: ATTEND Physician Assistant
DX: J02.9 Acute pharyngitis, unspecified (principal)

== ENCOUNTER → 2023-12-03 | Outpatient (REF) | payer BC | LOC: M LAB REF 17:54 | PROVIDERS: ATTEND Physician Assistant Medical | DX: B34.9 Viral infection, unspecified (principal) ==

== ENCOUNTER → 2023-12-24 | Outpatient (CLI) | payer BC ==
[2023-12-24 10:26] LABS: BASO # 0.1 10^3/uL (0.0-0.2); BASO % 0.7 % (0.0-1.0); EOS # 0.2 10^3/uL (0.0-0.5); HEMATOCRIT 37.8 % (36.0-47.0); HEMOGLOBIN 12.6 g/dl (12.0-15.5); LYMPH # 1.9 10^3/uL (1.5-5.0); LYMPH % 28.3 % (24.0-44.0); MEAN CORPUSCULAR HEMOGLOBIN 29.1 pg (27.0-33.0); MEAN CORPUSCULAR HGB CONC 33.3 g/dl (32.0-36.5); MEAN CORPUSCULAR VOLUME 87.3 fl (80.0-96.0); MONO # 0.3 10^3/uL (0.0-0.8); MONO % 4.7 % (2.0-8.0); NEUTROPHILS # 4.3 10^3/uL (1.5-8.5); PLATELET COUNT, AUTOMATED 321 10^3/uL (150-450); RED BLOOD COUNT 4.33 10^6/uL (4.00-5.40); WHITE BLOOD COUNT 6.8 10^3/uL (4.0-10.0)
[2023-12-24 10:42] LABS: URIC ACID 5.9 MG/DL (3.1-7.8)
[2023-12-24 10:45] LABS: ALBUMIN 3.5 G/DL (3.2-5.2); ALKALINE PHOSPHATASE 107 U/L (46-116); ALT/SGPT 18 U/L (7.0-40); AST/SGOT 9 U/L (<34); BILIRUBIN,TOTAL 0.4 MG/DL (0.3-1.2); BLOOD UREA NITROGEN 12 MG/DL (9-23); CARBON DIOXIDE LEVEL 28 MMOL/L (20-31); CHLORIDE LEVEL 104 MMOL/L (98-107); CREATININE FOR GFR 0.64 MG/DL (0.55-1.30); GLOMERULAR FILTRATION RATE > 60.0 (>60); GLUCOSE, FASTING 100 MG/DL (60-100); IRON (FE) 55 UG/DL (50-170); PERCENT SATURATION 19.6 % (13.2-45.0); POTASSIUM SERUM 3.6 MMOL/L (3.5-5.1); RHEUMATOID FACTOR QUANT < 3.5 IU/ML (<14); SODIUM LEVEL 137 MMOL/L (136-145); TOTAL IRON BINDING CAPACITY 280 UG/DL (250-425); TOTAL PROTEIN 7.1 G/DL (5.7-8.2)
[2023-12-24 10:48] LABS: ERYTHROCYTE SEDIMENTATION RATE 59 mm/hr (0-20)
[2023-12-24 10:51] LABS: FREE T4 0.94 NG/DL (0.89-1.76)
[2023-12-24 10:52] LABS: FERRITIN 66.2 NG/ML (7.3-270.7); FOLLICLE STIMULATING HORMONE 5.4 mIU/ML; LUTEINIZING HORMONE 8.2 mIU/ML
[2023-12-24 11:21] LABS: MONO REFLEX EBV COMP NEGATIVE (NEGATIVE)
[2023-12-27 16:08] LABS: EBV VIRAL CAPSID AG IgG >600.0 U/mL (0.0-17.9); EBV VIRAL CAPSID AG IgM <36.0 U/mL (0.0-35.9)
== END ==
LOC: M LAB 09:16
PROVIDERS: ATTEND Physician Assistant
DX: R53.83 Other fatigue (principal); E28.2 Polycystic ovarian syndrome; N92.0 Excessive and frequent menstruation with regular cycle

== ENCOUNTER → 2024-04-19 | Outpatient (REF) | payer BC | LOC: M LAB REF 17:39 | PROVIDERS: ATTEND Physician Assistant | DX: R35.0 Frequency of micturition (principal) ==

== ENCOUNTER 2024-11-16 10:15 | Emergency (ER) | payer BC ==
[~2024-11-16] VITALS: Ht 157.5 cm; Wt 111.5 kg
[2024-11-16 10:51] LABS: BASO # 0.1 10^3/uL (0.0-0.2); BASO % 0.5 % (0.0-1.0); EOS # 0.4 10^3/uL (0.0-0.5); EOS % 4.4 % (0.0-3.0); HEMATOCRIT 41.9 % (36.0-47.0); LYMPH # 1.2 10^3/uL (1.5-5.0); LYMPH % 12.7 % (24.0-44.0); MEAN CORPUSCULAR HEMOGLOBIN 29.9 pg (27.0-33.0); MEAN CORPUSCULAR HGB CONC 33.4 g/dl (32.0-36.5); MEAN CORPUSCULAR VOLUME 89.5 fl (80.0-96.0); MONO # 0.5 10^3/uL (0.0-0.8); MONO % 4.9 % (2.0-8.0); NEUTROPHILS # 7.2 10^3/uL (1.5-8.5); NEUTROPHILS % 77.3 % (36.0-66.0); PLATELET COUNT, AUTOMATED 272 10^3/uL (150-450); RED BLOOD COUNT 4.68 10^6/uL (4.00-5.40); WHITE BLOOD COUNT 9.4 10^3/uL (4.0-10.0)
[2024-11-16 11:21] LABS: CK-MB VALUE MASS < 1.0 NG/ML (<3.6)
[2024-11-16 11:22] LABS: BLOOD UREA NITROGEN 13 MG/DL (9-23); CALCIUM LEVEL 8.9 MG/DL (8.5-10.1); CARBON DIOXIDE LEVEL 29 MMOL/L (20-31); CHLORIDE LEVEL 109 MMOL/L (98-107); CREATININE FOR GFR 0.74 MG/DL (0.55-1.30); GLOMERULAR FILTRATION RATE > 60.0 (>60); GLUCOSE, FASTING 90 MG/DL (60-100); SODIUM LEVEL 139 MMOL/L (136-145)
[2024-11-16 11:26] LABS: CPK CREATINE PHOSPHOKINASE 69 U/L (34-145); MB/CK RELATIVE INDEX 1.44 (< OR =4)
[2024-11-16 17:46] VITALS: BP 134/82; TEMP 98.2; O2SAT 100
== END 2024-11-16 17:59 | disposition home or self-care (01) ==
LOC: M ED 10:15
DX: R55 Syncope and collapse (principal); F41.9 Anxiety disorder, unspecified; F32.A Depression, unspecified; F17.200 Nicotine dependence, unspecified, uncomplicated; Z88.2 Allergy status to sulfonamides

== ENCOUNTER → 2025-01-24 | Outpatient (CLI) | payer BC ==
[~2025-01-24] MED LIST changes: +ISOVUE-370 76% 100ML VIAL As Ordered ONE
== END ==
LOC: M RAD 17:25
PROVIDERS: ATTEND Family Medicine
DX: R16.2 Hepatomegaly with splenomegaly, not elsewhere classified (principal); R10.11 Right upper quadrant pain; K59.00 Constipation, unspecified; K58.2 Mixed irritable bowel syndrome
CPT/HCPCS: 74177; Q9967